=== PATIENT | male | born 1995 | race Two or more races ===

== ENCOUNTER 2025-05-12 18:13 | Emergency (ER) | payer MEDICAID, SELFPAY ==
[2025-05-12 18:14] VITALS: BMI 34.2
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
== END 2025-05-12 21:34 | disposition home or self-care (01) ==
PROVIDERS: Emergency Provider Emergency Medicine
DX: S13.4XXA Sprain of ligaments of cervical spine, initial encounter (principal); S00.03XA Contusion of scalp, initial encounter; S00.83XA Contusion of other part of head, initial encounter; Y04.0XXA Assault by unarmed brawl or fight, initial encounter
CPT/HCPCS: 70450; 70486; 72125; 99283